=== PATIENT | male | born 1985 | race African-American/Black ===

== ENCOUNTER 2017-03-15 18:53 | Emergency (ER) | payer OTHER ==
[~2017-03-15] VITALS: Ht 177.8 cm; Wt 78.0 kg
[2017-03-15] MEDS ORDERED: SODIUM CHLORIDE 0.9% 1,000 ML IV ONE (19:05)
[2017-03-15] MEDS ORDERED: LORAZEPAM 2MG/ML CPJ IV STA (19:05)
[2017-03-15 19:38] LABS: BASOPHILS % 0.4 % (0.0-2.0); EOSINOPHILS % 1.7 % (0.0-5.0); HEMOGLOBIN. 14.2 g/dL (14.0-18.0); MEAN CORPUSCULAR HEMOGLOBIN 30.6 pg (28.0-32.0); MEAN CORPUSCULAR HGB CONC 33.8 g/dL (31.0-37.0); MEAN CORPUSCULAR VOLUME 90.4 fL (80.0-94.0); MEAN PLATELET VOLUME 8.5 fl (7.4-10.4); MONOCYTES % 7.9 % (2.0-8.0); PLATELET 218 x1000/uL (130-400); RED BLOOD CELL COUNT 4.64 mill/uL (4.7-6.1); RED CELL DISTRIBUTION WIDTH 13.9 % (11.6-14.6); WHITE BLOOD COUNT 8.1 x1000/uL (4.5-11.0)
[2017-03-15 19:42] LABS: CHLORIDE 105 mEq/L (98-107); INDEX HEMOLYSI 1 (1-3); INDEX ICTERIC 1 (1-4); INDEX LIPEMIC 1 (1-3)
[2017-03-15 19:44] LABS: PROTHROMBIN TIME 10.7 sec
[2017-03-15 19:48] LABS: ALANINE AMINOTRANSFERASE 51 IU/L (13-61); ALBUMIN 3.9 g/dL (3.4-5.0); ANION GAP 13; CALCIUM 8.8 mg/dL (8.5-10.1); CARBON DIOXIDE 28 mEq/L (21-32); ETHANOL BLOOD < 10 mg/dL; LIPASE 104 IU/L (73-393); UREA NITROGEN BLOOD 15 mg/dL (7-21)
[2017-03-15 19:49] LABS: AMMONIA 35 uMol/L (<32)
[2017-03-15 19:49] LABS: eGFR > 60 mL/min (>60)
[2017-03-15 20:00] VITALS: BP 136/74
[2017-03-15] MEDS ORDERED: SODIUM CHLORIDE 0.9% 1,000 ML IV NR (20:14)
== END 2017-03-15 22:04 | disposition left against medical advice (07) ==
LOC: ER 19:20
DX: S02.2XXA Fracture of nasal bones, initial encounter for closed fracture (principal); S00.83XA Contusion of other part of head, initial encounter; S02.40EA Zygomatic fracture, right side, initial encounter for closed fracture; F16.10 Hallucinogen abuse, uncomplicated; R41.82 Altered mental status, unspecified; E72.20 Disorder of urea cycle metabolism, unspecified; F17.200 Nicotine dependence, unspecified, uncomplicated; F19.10 Other psychoactive substance abuse, uncomplicated; F31.9 Bipolar disorder, unspecified; X58.XXXA Exposure to other specified factors, initial encounter; Y93.89 Activity, other specified; Y92.89 Other specified places as the place of occurrence of the external cause; Y99.8 Other external cause status
CPT/HCPCS: 36415; 70450; 70486; 80053; 82140; 83605; 83690; 85025; 85610; 93005; 99285; G0482; J7030

== ENCOUNTER 2023-11-29 15:51 | Emergency (ER) | payer MEDICAID, OTHER ==
[~2023-11-29] VITALS: Ht 167.6 cm; Wt 69.0 kg
[2023-11-29 16:07] VITALS: O2SAT 100
[2023-11-29] MEDS ORDERED: HYDROCODONE/ACETAMINOPHEN 10/325MG TABLET PO ONE (16:15)
[2023-11-29] MEDS ORDERED: HYDROCODONE/ACETAMINOPHEN 10/325MG TABLET PO NR (18:30)
[2023-11-29] MEDS ORDERED: KETOROLAC 15MG/ML VIAL IV ONE (19:15)
[2023-11-29] MEDS ORDERED: MORPHINE SULFATE 4 MG/ML CPJ (NOT FOR IM USE) IV ONE (19:15)
[2023-11-29 19:51] LABS: BASOPHILS % 0.4 % (0.0-2.0); EOSINOPHILS % 0.6 % (0.0-5.0); HEMATOCRIT. 32.3 % (42.0-52.0); HEMOGLOBIN. 10.5 g/dL (14.0-18.0); LYMPHOCYTES % 14.7 % (20.0-50.0); MEAN CORPUSCULAR HEMOGLOBIN 29.7 pg (28.0-32.0); MEAN CORPUSCULAR HGB CONC 32.6 g/dL (31.0-37.0); MEAN CORPUSCULAR VOLUME 90.8 fL (80.0-94.0); MEAN PLATELET VOLUME 7.6 fl (7.4-10.4); MONOCYTES % 4.8 % (2.0-8.0); NEUTROPHILS % 79.5 % (40.0-76.0); PLATELET 531 x1000/uL (130-400); RED BLOOD CELL COUNT 3.55 mill/uL (4.7-6.1); RED CELL DISTRIBUTION WIDTH 14.7 % (11.6-14.6); WHITE BLOOD COUNT 9.2 x1000/uL (4.5-11.0)
[2023-11-29 20:11] LABS: ALANINE AMINOTRANSFERASE 8 IU/L (10-49); ALBUMIN 4.6 g/dL (3.2-4.8); ASPARTATE AMINOTRANSFERASE 17 IU/L (<34); BILIRUBIN TOTAL 0.4 mg/dL (0.1-1.0); CARBON DIOXIDE 28 mEq/L (21-32); CHLORIDE 105 mEq/L (98-107); CREATININE 0.9 mg/dL (0.6-1.3); GLUCOSE 89 mg/dL (70-105); POTASSIUM 4.1 mEq/L (3.5-5.1); PROTEIN TOTAL 7.9 g/dL (6.0-8.3); SODIUM 140 mEq/L (136-145); UREA NITROGEN BLOOD 20 mg/dL (9-23)
[2023-11-30 00:53] VITALS: BP 117/71; PULSE 107; RESP 18; TEMP 98.4
== END 2023-11-30 01:15 | disposition short-term general hospital (02) ==
LOC: ER 15:51
DX: S72.92XA Unspecified fracture of left femur, initial encounter for closed fracture (principal); W34.00XA Accidental discharge from unspecified firearms or gun, initial encounter; Y93.89 Activity, other specified; Y92.89 Other specified places as the place of occurrence of the external cause; Y99.8 Other external cause status
CPT/HCPCS: 80053; 85025; 36415; 73552; 73562; 96374; 96375; 99284; J1885; J2270; Z7610